=== PATIENT | male | born 1985 | race Caucasian/White ===

== ENCOUNTER 2017-12-29 00:55 | Emergency (ER) | payer MEDICAID ==
[2017-12-29 03:16] VITALS: BP 121/61
[2017-12-29] MEDS ORDERED: MOTRIN PO ONE (05:02)
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
--- NOTE | 2017-12-29 06:07 | XRay Report ---
FINAL REPORT EXAM: XR FOOT BILAT 3+V HISTORY: phoebe foot pain COMPARISONS: None. FINDINGS: Three nonweightbearing views of both feet No gross malalignment or deformities in either foot. No acute fracture or periosteal reaction identified. No radiodense foreign body. There is right greater than left forefoot soft tissue swelling. IMPRESSION: No fracture or gross malalignment in either foot.
--- NOTE | 2017-12-29 06:08 | XRay Report ---
FINAL REPORT EXAM: XR SPINE CERVICAL 2-3V HISTORY: neck pain COMPARISONS: None FINDINGS: Five views of the cervical spine Cervical lordosis is within normal limits. Vertebral body heights and intervertebral disc spaces are preserved. No fractures. Prevertebral soft tissues are within normal limits. Incomplete evaluation of the lung apices is unremarkable. IMPRESSION: No acute fracture or gross cervical spine malalignment. Consider additional imaging including CT for worsening/persistent symptoms.
--- NOTE | 2017-12-29 06:09 | XRay Report ---
FINAL REPORT EXAM: XR SPINE LUMBOSACRAL 2-3V HISTORY: low back pain TECHNIQUE: Three views lumbar spine PRIORS: None. FINDINGS: Lumbar lordosis is intact. Vertebral body heights and intervertebral disc spaces are preserved. No listhesis, spondylolysis or other fracture. Umbilical jewelry is noted. IMPRESSION: No lumbar spine fracture or malalignment. Consider follow-up CT for more sensitive evaluation as warranted.
== END 2017-12-29 06:30 | disposition home or self-care (01) ==
LOC: EDSEX → ED 00:55
DX: S13.4XXA Sprain of ligaments of cervical spine, initial encounter (principal); S39.012A Strain of muscle, fascia and tendon of lower back, initial encounter; M79.671 Pain in right foot; M79.672 Pain in left foot; F31.9 Bipolar disorder, unspecified; F17.200 Nicotine dependence, unspecified, uncomplicated; V49.09XA Driver injured in collision with other motor vehicles in nontraffic accident, initial encounter; Y93.89 Activity, other specified; Y99.8 Other external cause status; Y92.488 Other paved roadways as the place of occurrence of the external cause
CPT/HCPCS: 72040; 72100